=== PATIENT | female | born 1980 | race Caucasian/White ===

== ENCOUNTER 2021-12-31 04:20 | Inpatient (IN) ==
[2021-12-31] MEDS ORDERED: Ketorolac 30 MG/ML VIAL IVP ONE (04:54)
[2021-12-31] MEDS ORDERED: Morphine Sulfate 2 MG/ML SYRINGE IVP ONE ×2 (04:54→13:48)
[2021-12-31] MEDS ORDERED: 0.9 % Sodium Chloride 1,000 ML IV ONE (04:54)
[2021-12-31] MEDS ORDERED: Ondansetron 4 MG/2 ML VIAL IVP PRN (04:54)
[2021-12-31] MEDS ORDERED: cefTRIAXone 1,000 MG in 0.9 % Sodium Chloride Mini Bag 100 ML IVPB ONE (04:55)
[2021-12-31 05:49] LABS: Basophils # 0.1 K/mcL (0.0-0.2); Basophils % 0.6 %; Eosinophils # 0.3 K/mcL (0.0-0.6); Eosinophils % 1.9 %; Hemoglobin 14.5 g/dL (11.5-15.4); Immature Granulocytes % 0.5 % (0-4); Lymphocytes # 2.6 K/mcL (0.6-4.6); Mean Corpuscular HGB Conc 34.5 g/dL (31.6-35.5); Mean Corpuscular Hemoglobin 32.3 pg (28.0-33.3); Mean Corpuscular Volume 93.5 fL (83.0-100.0); Mean Platelet Volume 9.9 fL (9.4-12.4); Monocytes # 0.7 K/mcL (0.0-1.3); Monocytes % 4.6 %; Neutrophils # 10.8 K/mcL (1.6-8.9); Platelet Count 283 K/mcL (140-400); Red Blood Count 4.49 M/mcL (3.82-4.97); Red Cell Distribution Width 12.9 % (11.5-14.5); Segmented Neutrophils % 74.4 %; White Blood Count 14.5 K/mcL (4.3-11.1)
[2021-12-31 06:30] LABS: BUN/Creatinine Ratio 13 (6-26); Blood Urea Nitrogen 11 mg/dL (6-20); Calcium 8.7 mg/dL (8.6-10.3); Carbon Dioxide 27 mEq/L (23-29); Chloride 105 mEq/L (98-107); Glucose 85 mg/dL (70-105); Osmolality,Calculated 287 (280-300); Potassium 3.6 mEq/L (3.5-5.1); Sodium 139 mEq/L (136-145); eGFR For African Americans > 60 (> 60); eGFR For Non-African Americans > 60 (> 60)
[2021-12-31] MEDS ORDERED: IOPAMIDOL IVP ONE (06:37)
[2021-12-31] MEDS ORDERED: SODIUM CHLORIDE 0.9% IVP ONE (06:37)
[2021-12-31] MEDS ORDERED: Ciprofloxacin/Dex *EAR* Susp 7.5 ML BOTTLE LEFT EAR ONE (06:59)
[2021-12-31] MEDS ORDERED: Piperacillin/Tazobactam 3.375 GM in 0.9 % Sodium Chloride Mini Bag 100 ML IVPB ONE ×2 (06:59→11:00)
[2021-12-31] MEDS ORDERED: *HR* OxyCODONE Oral Soln 5 MG/5 ML UD.LIQ PO PRN (08:14)
[2021-12-31] MEDS ORDERED: Naloxone 0.4 MG/ML INJ IVP PRN (08:16)
[2021-12-31] MEDS ORDERED: 0.9 % Sodium Chloride 1,000 ML IVC SCH (08:30)
[2021-12-31] MEDS: 0.9 % Sodium Chloride 1,000 ML IVC SCH (14:12)
[2021-12-31] MEDS ORDERED: Piperacillin/Tazobactam 3.375 GM in 0.9 % Sodium Chloride Mini Bag 100 ML IVPB SCH (16:00)
[2021-12-31] MEDS: Piperacillin/Tazobactam 3.375 GM in 0.9 % Sodium Chloride Mini Bag 100 ML IVPB SCH (17:58)
[2021-12-31] MEDS ORDERED: 0.9 % Sodium Chloride 1,000 ML IVC ONE (20:20)
[2022-01-01] MEDS: 0.9 % Sodium Chloride 1,000 ML IVC SCH (00:21)
[2022-01-01] MEDS: Ketorolac 30 MG/ML VIAL IVP SCH ×4 (00:21→18:01)
[2022-01-01] MEDS: Piperacillin/Tazobactam 3.375 GM in 0.9 % Sodium Chloride Mini Bag 100 ML IVPB SCH ×3 (02:29→18:05)
[2022-01-01] MEDS ORDERED: 0.9 % Sodium Chloride 1,000 ML IVC ONE (04:56)
[2022-01-01 07:47] LABS: Basophils # 0.1 K/mcL (0.0-0.2); Basophils % 0.8 %; Eosinophils # 0.2 K/mcL (0.0-0.6); Eosinophils % 2.3 %; Immature Granulocytes % 0.3 % (0-4); Lymphocytes # 2.4 K/mcL (0.6-4.6); Lymphocytes % 30.5 %; Mean Corpuscular HGB Conc 32.6 g/dL (31.6-35.5); Mean Corpuscular Hemoglobin 31.7 pg (28.0-33.3); Mean Corpuscular Volume 97.2 fL (83.0-100.0); Mean Platelet Volume 10.1 fL (9.4-12.4); Monocytes # 0.5 K/mcL (0.0-1.3); Monocytes % 6.4 %; Neutrophils # 4.8 K/mcL (1.6-8.9); Platelet Count 209 K/mcL (140-400); Red Cell Distribution Width 12.8 % (11.5-14.5); Segmented Neutrophils % 59.7 %
[2022-01-01 07:49] LABS: Hemoglobin 11.4 g/dL (11.5-15.4)
[2022-01-01 08:00] LABS: BUN/Creatinine Ratio 7 (6-26); Blood Urea Nitrogen 5 mg/dL (6-20); Calcium 7.7 mg/dL (8.6-10.3); Carbon Dioxide 25 mEq/L (23-29); Chloride 112 mEq/L (98-107); Glucose 85 mg/dL (70-105); Magnesium 1.8 mg/dL (1.6-2.6); Osmolality,Calculated 285 (280-300); Potassium 3.9 mEq/L (3.5-5.1); Sodium 139 mEq/L (136-145); eGFR For African Americans > 60 (> 60); eGFR For Non-African Americans > 60 (> 60)
[2022-01-01] MEDS: Ciprofloxacin/Dex *EAR* Susp 7.5 ML BOTTLE BOTH EARS SCH ×3 (10:03→20:11)
[2022-01-02] MEDS: Ketorolac 30 MG/ML VIAL IVP SCH ×2 (00:24→06:03)
[2022-01-02 03:49] VITALS: TEMP 98.1
[2022-01-02] MEDS: Piperacillin/Tazobactam 3.375 GM in 0.9 % Sodium Chloride Mini Bag 100 ML IVPB SCH (03:56)
[2022-01-02 07:19] VITALS: BP 111/67; PULSE 70; O2SAT 99
[2022-01-02] MEDS: Ciprofloxacin/Dex *EAR* Susp 7.5 ML BOTTLE BOTH EARS SCH (08:52)
== END 2022-01-02 10:22 | disposition home or self-care (01) | DRG 156 ==
LOC: 3ANU 04:20 → EMEROOARM 04:20 → SUATTDRO 11:47 → 3ANU 13:00
PROVIDERS: ADMIT Family Medicine; ATTEND Internal Medicine